=== PATIENT | female | born 1980 | race American Indian/Alaskan Native ===

== ENCOUNTER 2018-12-28 19:01 | Emergency (ER) | payer OTHER ==
[2018-12-28 19:09] VITALS: RESP 18; TEMP 98.1
[2018-12-28] MEDS ORDERED: Naproxen 550 mg Tab PO STA (21:09)
--- NOTE | 2018-12-28 21:11 | ED PDOC ---
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 Otherwise: (-) other injury, (-) numbness, (-) other complaints. Past Medical History - Reproductive Currently : No - Psychiatric Hx Substance Use: No - Surgical History Other/Comment: cataract sx. lasik eye sx - Anesthesia Hx Anesthesia: Yes Hx Anesthesia Reactions: No Hx Malignant Hyperthermia: No Family/Social History Family/Social History: No Known Family HX Smoking Status: Never Smoked Hx Alcohol Use: No Hx Substance Use: No Allergies/Home Meds Allergies/Adverse Reactions: Allergies No Known Allergies Allergy (Verified 12/28/18 19:05) Review of Systems - Review of Systems Constitutional: absent: Fatigue, Fevers Musculoskeletal: Arthralgias, Joint Swelling. absent: Back Pain, Neck Pain Skin: absent: Rash, Skin Lesions Physical Exam - Physical Exam Narrative Physical Exam (Text): 12/28/18 21:11 GENERAL APPEARANCE: Patient is awake, alert, oriented x 3, in mild painful distress. SKIN: Warm, (-) rash, (-) lesions. UPPER EXTREMITY: (+) Tenderness, (+) swelling, (+) ecchymosis of dorsal aspect of the left hand over the second and third metacarpal; (-) crepitus, (-) deformity. Tendon function intact. (-) distal neurovascular deficit. 2 point discrimination intact. Remainder of hand, digits and wrist: (-) injury, (+) FROM. Vital Signs Temp Pulse Resp BP Pulse Ox 12/28/18 19:01 98.1 F 88 18 118/81 100 Medical Decision Making ED Course and Treatment: 12/28/18 21:09 Plan: -- X-ray left hand -- Naproxen by mouth XR left hand: no fracture, no dislocation, as read by PA Patient advised that official radiology read of XR is still pending and will call the patient if there is any discrepancy within 24 hours. On reevaluation, patient remains awake alert and oriented 3, has no additional complaints. x-ray results discussed with the patient, diagnosis of contusion discussed with the patient, advised to ice and elevate. Ramon wrap and sling applied. Advised to follow up with primary care physician or ortho in 1-2 days without fail. Advised to take medication as prescribed. Return to the emergency room at any time for any new or worsening symptoms. Patient states she fully agrees with and understands discharge instructions. States that she agrees with the plan and disposition. Verbalized and repeated discharge instructions and plan. I have given the patient opportunity to ask any additional questions. - RAD Interpretation Radiology Orders: 12/28/18 19:36 HAND LEFT 3 VIEWS ROUTINE [RAD] Stat - PA / IN PROCESSING INSTRUCTOR / Resident Statement MD/DO has reviewed & agrees with the documentation as recorded. Disposition/Present on Arrival - Present on Arrival Any Indicators Present on Arrival: No History of DVT/PE: No History of Uncontrolled Diabetes: No Urinary Catheter: No History of Decub. Ulcer: No History Surgical Site Infection Following: None - Disposition Have Diagnosis and Disposition been Completed?: Yes Diagnosis: Contusion of hand, left Disposition: HOME/ ROUTINE Disposition Time: 21:00 Patient Plan: Discharge Condition: STABLE Discharge Instructions (ExitCare): Contusion (DC) Additional Instructions: Thank you for letting us take care of you today. You were treated for hand contusion. The emergency medical care you received today was directed at your acute symptoms. If you were prescribed any medication, please fill it and take as directed. It may take several days for your symptoms to resolve. Return to the Emergency Department if your symptoms worsen, do not improve, or if you have any other problems. Please contact your doctor in 2 days for re-evaluation and follow up / or call one of the physicians/clinics you have been referred to that are listed on the Patient Visit Information form that is included in your discharge packet. Bring any paperwork you were given at discharge with you along with any medications you are taking to your follow up visit. Our treatment cannot replace ongoing medical care by a primary care provider (PCP) outside of the emergency department. Thank you for allowing the [facility] team to be part of your care today. If you had an X-Ray : A Radiologist will review the ED reading if any change in treatment is needed we will contact you. Prescriptions: Naproxen 500 mg PO BID #30 tab Referrals: Song Proctor MD [Staff Provider] - Follow up with primary Forms: [facility] ([place]), WORK NOTE
[2018-12-28 21:24] VITALS: BP 116/79; PULSE 84; O2SAT 98
--- NOTE | 2018-12-29 10:53 | RAD ---
PROCEDURE: Left Hand Radiographs. HISTORY: trauma COMPARISON: None. FINDINGS: BONES: Normal. No fracture. JOINTS: Normal. No osteoarthritic changes. SOFT TISSUES: Normal. OTHER FINDINGS: None. IMPRESSION: Normal left hand radiographs.
== END 2018-12-28 21:31 | disposition home or self-care (01) ==
LOC: ED 19:01
DX: S60.222A Contusion of left hand, initial encounter (principal); W23.0XXA Caught, crushed, jammed, or pinched between moving objects, initial encounter